=== PATIENT | male | born 1950 | race Caucasian/White ===

== ENCOUNTER 2016-03-31 21:14 | Emergency (ER) | payer MEDICARE ==
[~2016-03-31] VITALS: Ht 188 cm; Wt 108.9 kg
[2016-03-31 21:44] LABS: BASO % 1 % (0-3); EOS % 1 % (0-3); HEMATOCRIT 40.2 % (39.0-53.0); HEMOGLOBIN 13.4 g/dL (13.0-17.5); LYMPH # 1.2 x10^3/uL (1.0-4.8); LYMPH % 14 % (24-48); MEAN CORPUSCULAR HEMOGLOBIN 31 pg (25-35); MEAN CORPUSCULAR HGB CONC 33 g/dL (31-37); MEAN CORPUSCULAR VOLUME 94 fL (79-100); MONO % 10 % (0-9); NEUT % 74 % (31-73); PLATELET COUNT 201 x10^3/uL (140-400); RED CELL DISTRIBUTION WIDTH 14.8 % (11.5-14.5)
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
[2016-03-31 21:55] LABS: CALCIUM 9.2 mg/dL (8.5-10.1); GFR 75.5
[2016-03-31 22:13] LABS: ALBUMIN 3.9 g/dL (3.4-5.0); ALBUMIN/GLOBULIN RATIO 1.4 (1.0-1.7); TOTAL BILIRUBIN 0.5 mg/dL (0.2-1.0); TOTAL PROTEIN 6.7 g/dL (6.4-8.2)
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
[2016-03-31 22:53] LABS: BILIRUBIN,URINE NEGATIVE (NEG); GLUCOSE,URINE 250 mg/dL (NEG); NITRITE,URINE NEGATIVE (NEG); PROTEIN,URINE NEGATIVE (NEG-TRACE); UROBILINOGEN,URINE 0.2 mg/dL (0.2 mg/dL)
[2016-03-31 22:59] LABS: BARBITURATES NEG (NEG); BENZODIAZEPINES NEG (NEG); CANNABINOIDS NEG (NEG); COCAINE NEG (NEG); METHADONE NEG (NEG); OPIATES POS (NEG); PHENCYCLIDINE NEG (NEG)
[2016-03-31 23:07] LABS: ETHANOL, URINE NEG (NEG)
[2016-03-31 23:08] LABS: BACTERIA,URINE 0 /HPF (0-FEW); RBC,URINE 0 /HPF (0-2); WBC,URINE 0 /HPF (0-4)
[2016-03-31 23:42] LABS: INR 1.1 (0.8-1.1); PROTHROMBIN TIME PATIENT 13.6 SEC (11.7-14.0)
[2016-04-01] MEDS ORDERED: CONTRAST GIVEN MC PRN (00:15)
[2016-04-01] MEDS ORDERED: IOHEXOL 300 MG/ML 75 ML VIAL IV ONE (00:30)
[2016-04-01] MEDS ORDERED: IV NORMAL SALINE 1000ML BAG 1,000 ML IV ONE (00:30)
[2016-04-01 01:02] VITALS: BP 156/93
--- NOTE | 2016-04-01 01:04 | RAD ---
INDICATION: Syncope COMPARISON: None TECHNIQUE: Axial CT images obtained through the chest. Intravenous contrast was utilized. 3D images processed per protocol. One or more of the following individualized dose reduction techniques were utilized for this examination: 1. Automated exposure control; 2. Adjustment of the mA and/or kV according to patient size; 3. Use of iterative reconstruction technique. FINDINGS: No evidence of pneumothorax. 5 millimeter nodule in the left lung along the fissure. Sub 5 millimeter right upper lung pulmonary nodules. No focal airspace consolidation to suggest pneumonia. No thoracic aortic aneurysm or dissection. Coronary artery calcific atherosclerosis. Degenerative changes of spine. There is a sclerotic appearance of some of the thoracic vertebral bodies which is most severe in the T5 vertebral body. There is also sclerotic lesions scattered throughout the ribs. 6 millimeter nodule left upper lung. Image 40. No embolus and main, right main or left main pulmonary artery. Some limitation peripherally secondary to patient motion IMPRESSION: No evidence of thoracic aortic aneurysm or mediastinal hemorrhage. There is some scattered nodules within the lungs bilaterally measuring up to about 6 millimeters. Follow-up could be obtained in 6 months to ensure no growth. There is some scattered sclerotic foci in the osseous structures including the spine. Correlation is needed as to whether the patient has any neoplasm since a sclerotic metastasis is in the differential for this finding although benign etiology can also have this appearance. If this is of unknown etiology a follow-up bone scan or PET-CT could further evaluate. No focal airspace consolidation to suggest pneumonia. Electronically signed by: Spencer Larios (Apr 01, 2016 01:02:15)
--- NOTE | 2016-04-01 11:03 | RAD ---
Three-view left shoulder radiographs 03/31/2016 Clinical history: Fall with left shoulder pain. AP internal and external rotation and transscapular digital radiographs of left shoulder were obtained. No fracture or dislocation of left shoulder is seen. Mild degenerative changes are seen involving the left glenohumeral joint. Mild to moderate degenerative changes are seen involving the left AC joint. A calcified left mediastinal lymph node is noted. Impression: No fracture or dislocation of the left shoulder is seen.
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
--- NOTE | 2016-04-01 11:08 | RAD ---
AP portable chest radiograph 03/31/2016 Clinical History: Chest pain and syncope. An AP portable erect digital radiograph of the chest was obtained. Comparison study is dated 03/29/2014. The right internal jugular [id number] type catheter has been removed. The cardiac silhouette is mildly enlarged. The thoracic aorta is tortuous. Calcified granulomas are seen involving both lungs. A calcified left hilar lymph node is again seen. No acute pulmonary infiltrate is noted. No pneumothorax or pleural effusion is seen. Degenerative changes are seen involving the thoracic spine Impression: No acute abnormality is seen.
--- NOTE | 2016-04-01 14:53 | EKG ---
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
--- NOTE | 2016-04-03 06:14 | EKG ---
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
== END 2016-04-01 01:24 | disposition left against medical advice (07) ==
LOC: ER 21:14
DX: R55 Syncope and collapse (principal); G89.29 Other chronic pain; M54.5 Low back pain; M54.2 Cervicalgia; E11.9 Type 2 diabetes mellitus without complications; I25.2 Old myocardial infarction; Z90.49 Acquired absence of other specified parts of digestive tract; F14.10 Cocaine abuse, uncomplicated; F11.10 Opioid abuse, uncomplicated; F12.10 Cannabis abuse, uncomplicated; I25.10 Atherosclerotic heart disease of native coronary artery without angina pectoris; Z88.8 Allergy status to other drugs, medicaments and biological substances
CPT/HCPCS: 36415; 70450; 71010; 71275; 72100; 72125; 73030; 80053; 81001; 83880; 84484; 85027; 85610; 85730; 93005; 96360; 99285; G0481; J7030; Q9967